=== PATIENT | male | born 1940 | race Caucasian/White ===

== ENCOUNTER → 2024-09-16 | Outpatient (CLI) | payer MEDICARE ==
--- NOTE | 2024-09-16 10:03 | MM ---
Reason for Exam: Follow-up at short interval from prior study. Last mammogram was performed 1 year(s) and 1 month(s) ago. Prior Study Comparison: 08/31/2023 Bilateral MG 3D diag mammo w/cad [facility], [facility]. Tissue Density: Right: The breasts are almost entirely fatty. Findings: Analyzed By CAD. No significant mass, suspicious microcalcification, or other discrete abnormality is seen. No change from prior. Overall Assessment: Incomplete: need additional imaging evaluation, BI-RAD 0 Management: Diagnostic Breast Ultrasound of the right breast. At the patient's persistent palpable site. [facility], , 09/16/2024 10:00 AM. Electronically signed and approved by: Yanni Ledesma M.D. Radiologist
--- NOTE | 2024-09-16 10:29 | USB ---
Technique: Method: Targeted. Doppler: Color. Patient Position: Supine. Prior Study Comparison: 08/31/2023 Bilateral MG 3D diag mammo w/cad [facility], [facility]. Findings: The upper outer quadrant of the right breast, the axilla of the right breast and the retroareolar of the right breast were scanned. Targeted ultrasound upper outer quadrant including scanning of the subareolar region and axilla. At the patient's palpable site, a 11:00 near the nipple, there is some focal thickening of the skin surface to 4 mm versus 1 mm elsewhere. No solid or cystic lesion is seen. No axillary lymphadenopathy. Overall Assessment: Benign, BI-RAD 2 Management: Clinical Management of the right breast in 1 year. For patients palpable area in the right breast. On ultrasound, this area seems to correspond to slight skin thickening 11:00 near the nipple which could reflect some scarring/sequela of patient's previous injury. No suspicious lesion is seen. If any changing or enlarging palpable area is encountered, the patient be rescanned. Results were given to the patient verbally at the time of exam. [facility], , 09/16/2024 10:27 AM. Electronically signed and approved by: Yanni Ledesma M.D. Radiologist
== END | disposition home or self-care (01) ==
LOC: RADMAMWWP 09:24
PROVIDERS: ATTEND Family Medicine
DX: R92.8 Other abnormal and inconclusive findings on diagnostic imaging of breast (principal); R92.311 Mammographic fatty tissue density, right breast
CPT/HCPCS: 77065; 76642; G0279; 77061